=== PATIENT | male | born 2000 | race Caucasian/White ===

== ENCOUNTER 2020-04-05 07:32 | Day surgery (SDC) | payer BC ==
[~2020-04-05] VITALS: Ht 170.2 cm; Wt 90.7 kg
--- NOTE | ~2020-04-05 | OP ---
PATIENT NAME: ZOE COVINGTON MEDICAL RECORD: [id number] :00 [facility] AD[facility] DATE: SURGEON: AGUSTINA SUGGS MD DATE OF OPERATION: 04/05/2020 PREOPERATIVE DIAGNOSES: Displaced nasal fracture, septal fracture, and fracture of the maxillary spine. POSTOPERATIVE DIAGNOSES: Displaced nasal fracture, septal fracture, and fracture of the maxillary spine. PROCEDURE: Closed reduction nasal fracture with open reduction of septal fracture. SURGEON: Agustina Suggs MD ANESTHESIA: General orotracheal. BLOOD LOSS: 5 cc. SPECIMENS: None. SPLINTS: Quispe splints internally and Octaviano splint externally. COMPLICATIONS: None. DISPOSITION: Recovery stable. PROCEDURE NOTE: He was brought to the operating room and placed in supine position, sedated and intubated by anesthesia. A headlight and nasal speculum were used to inject the nasal septum, floor of the nose, and inferior turbinates bilaterally. He was cleaned up, prepped, positioned draped in usual sterile fashion. Then, nasal speculum was used. A left-sided [place] incision was made. Maxillary spine was freely mobile. The septum was fractured off the maxillary spine. There was ecchymosis and some thickening. The ipsilateral mucoperichondrial flap was elevated on the left side. Septal fracture was seen. There was a little bit of overlap there where it was fractured and pushed posteriorly. That was lifted up a little bit and was trimmed off, so it would sit in front of each other flattening the plane in the midline and then a caudal was used to remove some curved cartilage from the left floor of the nose. A chisel was used to remove some of the bone from the left side. A posterior mucoperichondrial flap was elevated and the bony spur inferiorly was removed using scissors. That allowed the septum to fall back to the midline. The fractures were teared and the septal cartilage anteriorly was reduced and set nicely in the midline. Inferior turbinates were outfractured. The nasopharynx was suctioned. The septum was intact, midline looked good. A 4-0 chromic was used to close the Roly incision and then the nasal fracture was addressed. He had a laceration that appeared closed on the left side, but I manipulated the nose that opened up and there was obvious bone spicule sticking out to the level of the skin on the left side. With reduction of the fracture that bony fragment moved back into position and was not protruding through the skin anymore. Then the David elevator was used in the right side and digital pressure reduce the nasal fracture, which was somewhat S-shaped. Then I checked the septum anteriorly inside the nose and it really looked good. The laceration was closed with interrupted subcutaneous 5-0 Vicryl. This closed really nicely and then OPERATIVE REPORT [id number] ZOE COVINGTON the skin was cleaned. Mastisol and Steri-Strips were applied. A Riley splint was cut to size and placed as well. Intranasally, the nose was examined. Quispe splints with mupirocin were placed bilaterally and sutured to the anterior septum with a 2-0 Prolene on a Jonatan needle. He was awakened, extubated, and transported to recovery in good condition. No complications. TRANSINT:[id number] Voice Confirmation ID: [id number] DOCUMENT ID: [id number] AGUSTINA SUGGS MD CC: [id number] DICTATION DATE: 04/05/20 115 MANAGER OPERATIONAL: 04/05/202156 [facility] 04/05/20 [facility] [address] [place] [address]
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
== END 2020-04-05 13:45 | disposition home or self-care (01) ==
LOC: D.OPS 07:32 → D.PAN 09:15 → D.OPS 09:15
PROVIDERS: ATTEND Otolaryngology
DX: S02.2XXA Fracture of nasal bones, initial encounter for closed fracture (principal); S02.401A Maxillary fracture, unspecified side, initial encounter for closed fracture; X58.XXXA Exposure to other specified factors, initial encounter

== ENCOUNTER 2021-01-22 02:23 | Emergency (ER) | payer BC, OTHER ==
[~2021-01-22] VITALS: Ht 170.2 cm; Wt 85.0 kg
[2021-01-22 02:39] VITALS: Ht 170.2 cm; Wt 85.0 kg
[2021-01-22] MEDS ORDERED: ULTRAM50 MG PO (02:40)
[2021-01-22] MEDS ORDERED: AUGMENTIN 875-11 TAB PO (03:39)
[2021-01-22 03:48] VITALS: BP 131/87
== END 2021-01-22 03:48 | disposition home or self-care (01) ==
LOC: D.ER 02:23
DX: L05.01 Pilonidal cyst with abscess (principal)